=== PATIENT | female | born 1980 | race Caucasian/White ===

== ENCOUNTER 2020-02-23 20:19 | Emergency (ER) | payer OTHER ==
[~2020-02-23] VITALS: Ht 162.6 cm; Wt 68.0 kg
[2020-02-23 21:21] LABS: INFLUENZA A ANTIGEN Negative (Negative); INFLUENZA B ANTIGEN Negative (Negative)
[2020-02-23] MEDS ORDERED: Magic Mouthwash SW&SWALLOW (21:26)
[2020-02-23] MEDS ORDERED: AMOXICILLIN 50500 M1 PO (21:26)
[2020-02-23] MEDS ORDERED: HYDROCODON-ACE1 EAC7 PO (21:26)
[2020-02-23 21:53] VITALS: BP 124/75
== END 2020-02-23 21:54 | disposition home or self-care (01) ==
LOC: M.ERS 20:19
PROVIDERS: Personal Emergency Response Attendant
DX: J03.90 Acute tonsillitis, unspecified (principal); Z20.828 Contact with and (suspected) exposure to other viral communicable diseases